=== PATIENT | female | born 1980 | race Caucasian/White ===

== ENCOUNTER 2017-01-12 13:06 | Observation (INO) ==
[2017-01-12] MEDS ORDERED: Ringers Solution, Lactated 1,000 ML IVC SCH (13:15)
[2017-01-12] MEDS ORDERED: Acetaminophen 325 MG TABLET PO ONE (13:30)
--- NOTE | 2017-01-12 13:30 | OB/GYN History & Physical ---
Date of Encounter: 01/12/17 Time of Encounter: 13:28 Assessment and Plan (1) Fever Current visit: Yes Status: Acute CBC CMP Urinarlyis and reflex culture IV LR bolus of 1 liter followed by 125ml/hr 1 gram tylenol PO Discussed POC with Dr Baumann. Qualifiers: Fever type: unspecified Qualified Code(s): R50.9 - Fever, unspecified (2) tachycardia Current visit: Yes Status: Acute History of Present Illness Chief complaint: Fever and tachycardia HPI: Ms. Olivas is a 36 year old at 29 weeks 6 days that arrives from the office with c/o fever since Monday evening with tachycardia. Patient states she has had a headache for several days that she cannot get rid of (although it is better today), myalgia, chills, night sweats, and feeling feverish. She thought she may have a UTI several weeks ago, but her urinalysis was negative and she was not treated for one. She denies abdominal pain, suprapubic pain, back/flank pain. She has no new rashes. Her son had a fever for 12 hours last week after camping that was reduced with tylenol and he did not have a rash after his fever broke. She states positive movement. She denies vision changes, epigastric pain, vaginal bleeding, vaginal discharge, and cramping. Obstetrical History - Pregnancies : 3 Para: 2 Term: 2 : 0 Ab's: 0 Livin Medications and Allergies Vit Calc,Iron,Folic [ Vitamins] 1 tab PO DAILY 01/12/17 [ History] 3 Allergy/AdvReac Type Severity Reaction Status Date / Time No Known Allergies Allergy Verified 01/12/17 13:22 Review of System OB All systems PM: reviewed and no additional remarkable complaints except as stated - Constitutional Constitutional ROS IM: chills, fatigue, fever(s), headache(s), lethargy, malaise , night sweats Exam - Constitutional Constitutional: well developed, well nourished, no acute distress, average body habitus - HEENT HEENT: Normocephaly, Mucus Membranes Moist - Neck Neck exam: full ROM - Lungs Respiratory exam: CTAB - Cardiovascular Cardiovascular exam: RRR, +S1, +S2 (apical pulse 100) - Abdomen Abdomen: Present: bowel sounds normal, gravid, non tender (FHTs 210 with moderate varability) - Extremities Extremities exam: normal capillary refill, normal inspection, radial pulses palpable and symmetrical Deep Tendon Reflex Grade: 1+ Diminished - Uterus Uterus exam: Present: normal size, normal contour. Absent: tender Results All other labs normal. - VTE Reasons for not Prescribing Prophylaxis: Treatment not Indicated - Low risk for VTE
[2017-01-12 13:44] LABS: Basophils % 0.2 %; Eosinophils % 0.1 %; Hematocrit 31.4 % (35.3-44.9); Hemoglobin 10.3 g/dL (11.5-15.4); Immature Granulocytes % 0.8 % (0-4); Lymphocytes # 2.1 K/mcL (0.6-4.6); Lymphocytes % 20.9 %; Mean Corpuscular HGB Conc 32.8 g/dL (31.6-35.5); Mean Corpuscular Hemoglobin 31.3 pg (28.0-33.3); Mean Corpuscular Volume 95.4 fL (83.0-100.0); Mean Platelet Volume 10.3 fL (9.4-12.4); Monocytes # 0.4 K/mcL (0.0-1.3); Neutrophils # 7.5 K/mcL (1.6-8.9); Platelet Count 204 K/mcL (140-400); Red Blood Count 3.29 M/mcL (3.82-4.97); Red Cell Distribution Width 12.7 % (11.5-14.5)
[2017-01-12 13:45] LABS: Bilirubin,Urine Negative (Negative); Blood,Urine Negative (Negative); Clarity,Urine Cloudy (Clear); Color,Urine Yellow (Yellow); Glucose,Urine (UA) Normal (Normal); Ketones,Urine Negative (Negative); Leukocyte Esterase,Urine Negative (Negative); Nitrite,Urine Negative (Negative); PH,Urine 6.5 pH Units (5.0-8.0); Protein,Urine Trace mg/dL (Neg-Trace); Specific Gravity,Urine 1.025 (1.010-1.025); Urobilinogen,Urine Normal (Normal)
[2017-01-12 13:47] LABS: Bacteria,Urine None Seen per hpf (None-Few); Hyaline Casts,Urine None Seen per lpf (None-Few); Squamous Epithelial Cell,Urine Many per lpf (None-Few)
[2017-01-12 13:57] LABS: Alanine Aminotransferase 12 Units/L (0-55); Albumin 2.8 g/dL (3.5-5.0); Albumin/Globulin Ratio 0.7 (1.1-2.2); Alkaline Phosphatase 75 Units/L (38-126); Aspartate Amino Transferase 17 Units/L (5-34); BUN/Creatinine Ratio 9 (6-26); Bilirubin,Total 0.3 mg/dL (0.2-1.2); Blood Urea Nitrogen 7 mg/dL (7-20); Calcium 8.9 mg/dL (8.6-10.8); Carbon Dioxide 21 mEq/L (19-29); Chloride 105 mEq/L (98-109); Globulin 3.8 g/dL (2.4-3.5); Glucose 99 mg/dL (70-99); Osmolality,Calculated 278 (280-300); Potassium 3.7 mEq/L (3.5-4.5); Sodium 135 mEq/L (136-145); Total Protein 6.6 g/dL (6.0-8.3); eGFR For African Americans > 60 (> 60); eGFR For Non-African Americans > 60 (> 60)
[2017-01-12 13:58] LABS: RBC,Urine 0-3 per hpf (0-3)
[2017-01-12] MEDS ORDERED: Vancomycin 1,500 MG in D5% in Water 250 ML IVPB ONE (15:59)
[2017-01-12] MEDS ORDERED: Vancomycin 2,000 MG in D5% in Water 500 ML IVPB ONE (16:21)
[2017-01-12] MEDS ORDERED: Aminoglycoside Consult 1 EACH MC ONE (16:44)
[2017-01-13] MEDS ORDERED: Vancomycin 1,500 MG in D5% in Water 250 ML IVPB SCH (05:00)
== END 2017-01-12 16:45 | disposition short-term general hospital (02) ==
LOC: 1NENULAB
PROVIDERS: ADMIT Obstetrics & Gynecology; ATTEND Obstetrics & Gynecology

== ENCOUNTER 2017-01-12 16:59 | Inpatient (IN) ==
--- NOTE | 2017-01-12 17:33 | Emergency Department Note ---
Disposition Clinical Impression: Meningitis Headache Qualifiers: Headache type: unspecified Headache chronicity pattern: acute headache Intractability: not intractable Qualified Code(s): R51 - Headache Fever Qualifiers: Fever type: unspecified Qualified Code(s): R50.9 - Fever, unspecified Disposition: Admitted As Inpatient Condition: Fair Time of Disposition: 22:01 Headache HPI - General Chief Complaint: ED Headache Stated Complaint: headache Time Seen by Provider: 01/12/17 17:04 Source: patient Mode of arrival: ambulatory Limitations: no limitations Nursing Notes Reviewed: Yes Vital Signs Reviewed: Yes - History of Present Illness HPI Narrative: Patient is a 36-year-old female who presents to [facility] ED with a chief complaint of headache. States her symptoms started 5 days ago. She has also had a fever intermittently throughout the days. States the highest it has been is 101.5. Denies any nausea, vomiting. Patient is currently 30 weeks . She was sent over by the [facility] [employer] office to be evaluated and get a lumbar puncture to rule out meningitis. They have spoken with infectious disease specialist Dr. Baker who had recommended prophylactic antibiotics including Rocephin and vancomycin. Patient denies any recent bites or scratches from animals or bugs. Pt Subjective Complaint: headache Onset (ago): day(s) Onset description: gradual Location: frontal Pain Severity: moderate Pain Scale: 4 Quality: aching Improves with: nothing Worsens with: none Associated symptoms: Reports: fever. Denies: chest pain, nausea, vomiting, neck stiffness, vision changes, SOB, weakness Treatments prior to arrival: none - Related Data Home Medications Medication Instructions Recorded Confirmed Vit Calc,Iron,Folic 1 tab PO DAILY 01/12/17 01/12/17 [ Vitamins] Allergies Allergy/AdvReac Type Severity Reaction Status Date / Time No Known Allergies Allergy Verified 01/12/17 13:22 All systems ED: reviewed and negative except as stated. Headache PMH - Past Medical History Medical history: Reports: no medical history Female Surgical History: Reports: other Psychiatric history: Reports: no psych history - Social History Smoking Status: Never smoker Alcohol use: Reports: none Drug use: Reports: none Physical Exam - General Limitations: no limitations General appearance: alert, in no apparent distress - Head Head exam: atraumatic, normocephalic, normal inspection - Eye Eye exam: Present: normal appearance, PERRL, EOMI - ENT ENT exam: normal exam, normal oropharynx, mucous membranes moist, TM's normal bilaterally, normal external ear exam - Neck Neck exam: Present: normal inspection, full ROM, trachea midline. Absent: meningismus, lymphadenopathy - Chest Chest inspection: Present: normal inspection, symmetric chest wall rise - Respiratory Respiratory exam: Present: normal lung sounds bilaterally - Cardiovascular Cardiovascular exam: Present: regular rate, normal rhythm, normal heart sounds - Abdominal Exam Abdominal exam: Present: soft, Non-Tender. Absent: tenderness, distention, guarding, rebound, rigidity - Extremities Exam Extremities exam: Present: normal inspection, full ROM. Absent: tenderness, pedal edema - Back Exam Back exam: Present: normal inspection, full ROM. Absent: tenderness - Neurological Exam Neurological exam: Present: alert, oriented X3, CN II-XII intact - Psychiatric Psychiatric exam: Present: normal affect, normal mood - Skin Skin exam: Present: warm, dry, intact, normal color Course Course Narrative: Patient seen and examined. Headache with fever. Temperature here is 100.2. Sent by [facility] in conjunction with infectious disease for lumbar puncture. We will get a CT scan and then perform lumbar puncture. Patient counseled about the risks of radiation and benefits of doing a CT scan of her head. We will shield belly. She agreed to getting the CT scan. Patient also counseled about the risks and benefits of getting a lumbar puncture. She has agreed to this as well. Consent obtained. We will also get blood cultures. - Reevaluation(s) Reevaluation #1: CT of the head unremarkable. Lumbar puncture was successfully performed without any immediate complications. Awaiting results. Time: 19:59 Reevaluation #2: Spoke with hospitalist Dr. Andrew who accepted patient for admission. Time: 22:59 Vital Signs Temperature 100.2 F H 01/12/17 17:14 Pulse Rate 84 01/12/17 17:14 Respiratory Rate 18 01/12/17 17:14 Blood Pressure 105/63 01/12/17 17:14 O2 Sat by Pulse Oximetry 97 01/12/17 17:14 Temperature 100.2 F H 01/12/17 17:14 Pulse Rate 82 01/12/17 19:59 Respiratory Rate 18 01/12/17 19:59 Blood Pressure 110/56 01/12/17 19:59 O2 Sat by Pulse Oximetry 96 01/12/17 19:59 Oxygen Delivery Oxygen Delivery Room Air Headache - Medical Records Medical records reviewed: Yes I reviewed the patient's medical records. - Lab Data Lab results reviewed: Yes I reviewed the patient's lab results. - Radiology Data Radiology results reviewed: Yes I reviewed the patient's radiology results. Head CT 01/12/17 17:30 IMPRESSION: No acute intracranial abnormality. D/ / Brad Matta MD / Brad Matta MD Interpreting Provider: Brad Matta MD
[2017-01-12] MEDS ORDERED: Lidocaine 1% 20 ML MDV ID ONE (17:54)
--- NOTE | 2017-01-12 18:03 | Emergency Department Note ---
Disposition Clinical Impression: Meningitis, Headache, Fever Disposition: Admitted As Inpatient Condition: Fair General Adult HPI - General Chief complaint: ED Headache Stated complaint: headache Time Seen by Provider: 01/12/17 17:04 - History of Present Illness Pain Scale: 4 - Related Data Home Medications Medication Instructions Recorded Confirmed Vit Calc,Iron,Folic 1 tab PO DAILY 01/12/17 01/12/17 [ Vitamins] Allergies Allergy/AdvReac Type Severity Reaction Status Date / Time No Known Allergies Allergy Verified 01/12/17 13:22 Past Medical History - Past Medical History Medical history: Reports: no medical history Surgical history: Reports: other Psychiatric history: Reports: no psych history - Social History Smoking Status: Never smoker Smokeless Tobacco Status: No Alcohol use: Reports: none Drug use: Reports: none Physical Exam - General General appearance: alert, in no apparent distress Course - Reevaluation(s) Reevaluation #1: I saw the patient with the resident, Dr. billy. Patient was sent down from L&D where she was being evaluated. During that valuation she had reported headaches and fevers over the past couple of days. They did an evaluation on her and were concerned about the possibility of meningitis. They tried numerous ways to get an LP done by somebody in the hospital but no one was able to do it for them so they ended of discharge the patient Manisha and sending her down here to be evaluated and to get an LP done. Patient describes fevers over the past 4-5 days. As high as 102 degrees. She claims of headache that is frontal only. She describes it as pressure feeling. It is not associated with any upper respiratory congestion symptoms. She denies any actual neck pain or stiffness to me. On my physical examination I see no meningismus. She puts her chin down to her chest without any pain in her neck although it aggravates her frontal headache. Rest of the examination is unremarkable. She does have the fever and the only other associated symptom is headache yet my physical exam does not reveal an etiology for these symptoms. Thus I cannot rule out meningitis although I doubt its presence based on the fact that she has been having it for 4 or 5 days and yet looks fine and has no neck stiffness and has a normal white count. She is also 30 weeks and this adds the importance of making sure she does not have an intracranial infection or hemorrhagic issue. Thus after a shared decision-making discussion with the patient and family, it was decided that we would proceed with CT scan of the head and then LP if that CT was unremarkable. Patient had already been given antibiotics upstairs. Disposition will be based on diagnostic results and reevaluation. Time: 18:03 Vital Signs Temperature 100.2 F H 01/12/17 17:14 Pulse Rate 84 01/12/17 17:14 Respiratory Rate 18 01/12/17 17:14 Blood Pressure 105/63 01/12/17 17:14 O2 Sat by Pulse Oximetry 97 01/12/17 17:14 Temperature 101.9 F H 01/12/17 23:35 Pulse Rate 82 01/12/17 19:59 Respiratory Rate 16 01/12/17 23:35 Blood Pressure 94/53 01/12/17 23:35 O2 Sat by Pulse Oximetry 96 01/12/17 19:59 Oxygen Delivery Oxygen Delivery Room Air Attestation Statement - Attestation Attestation: I, Dr. Beltran, examined this patient [id number] and my medical decision- making was reviewed with the Resident Physician, Dr. billy. I agree with the documented findings, disposition and treatment plan as described except to the extent set forth below. Please see my progress notes for details. I was physically present during the lumbar puncture procedure.
[2017-01-12 20:00] LABS: Red Blood Cell,CSF < 0.002 M/mcL
[2017-01-12 20:05] LABS: Appearance,CSF Clear (Clear)
[2017-01-12 20:16] LABS: Glucose,CSF 52 mg/dL (40-70); Total Protein,CSF 32 mg/dL (15-45)
[2017-01-12] MEDS ORDERED: Acetaminophen 325 MG TABLET PO ONE (22:57)
[2017-01-12] MEDS ORDERED: 0.9 % Sodium Chloride 1,000 ML IVC ONE (23:10)
[2017-01-13] MEDS ORDERED: 0.9 % Sodium Chloride 1,000 ML IVC SCH (01:15)
[2017-01-13] MEDS ORDERED: Vancomycin 1,500 MG in D5% in Water 250 ML IVPB ONE (01:15)
--- NOTE | 2017-01-13 01:23 | Internal Med History&Physical ---
<Elias Melendrez - Last Filed: 01/13/17 01:30> Date of Encounter: 01/13/17 Time of Encounter: 01:17 Assessment and Plan (1) Meningitis Current visit: Yes Status: Suspected 36 y/o femlae 29 weeks 6 days presents with headache of 5 days Frontal headache constant nonradiating 7 out of 10 pain dull/throbbing, worsens with movement, flexing neck, light Denies nausea vomiting Reports stiff neck Associated with fever starting last Monday after returning from camping from [place] Healthy shows elevated white blood cell count with predominant leukocytosis CT head negative Patient febrile with temperature 101-102 Plan: Vancomycin (class C), ceftriaxone (B) , acyclovir (class B) [place] has known cases of Lyme disease ID on board Every 4 neuro checks Lyme disease serology [employer] onboard (2) DVT prophylaxis Current visit: Yes Status: Acute EPCD Internal Medicine - H&P: HPI Chief complaint: Headache Admitted From: Home Plans for Post Hospital Care: Home History of present illness: Ms. Olivas is a 36 year old female at 29 weeks 6 days presents with chief complaint of headache. Patient states that it started Monday after coming back from a camping trip from [place]. Headache is constant 7 out of 10 dull pain that worsens with flexing her neck, movement, light. Reports neck stiffness. The headache becomes a throbbing pain with movement. States since Monday she has had subjective fevers however this morning she was noted to have a fever of 101. Denies passing out, confusion, seizures, tick bite, rash, runny nose, sore throat, dry mouth, chest pain, palpitations, shortness of breath, cough, nausea, vomiting, diarrhea, dysuria, hematuria, vaginal discharge, vaginal bleeding. Patient's fever is controlled by Tylenol. heart rate has been elevated in the 180s to 200s. Dr. Call was consulted by Dr. Baumann who ordered a lumbar unsure, vancomycin, ceftriaxone. Lumbar puncture showed elevated white blood cell count predominantly leukocytosis. States previous pregnancies were spontaneous deliveries without any complications. No contributing past medical history. CT scan of the head unremarkable. Past Med Surg Social Fam HX - Past Medical History Medical history: no medical history Psychiatric history: no psych history - Past Surgical History Surgical History: other (left knee surgery) - Social History Smoking Status: Never smoker Smokeless Tobacco Status: No Alcohol use: none Drug use: none - Family History Mother Living Status: Still Living Hx Family Cardiac Disorders: No Hx Family Respiratory Disorders: No Hx Family Cancer: No Hx Family GI Disorders: No Hx Family Endocrine Disorder: Yes (Hypothyroidism) Hx Family Neuromuscular Disorders: No Hx Family Neurologic Disorders: No Hx Family HEENT Disorders: No Hx Family Autoimmune Disorders: No Internal Medicine - H&P: Meds Vit Calc,Iron,Folic [ Vitamins] 1 tab PO DAILY 01/12/17 [ History] 3 Allergy/AdvReac Type Severity Reaction Status Date / Time No Known Allergies Allergy Verified 01/12/17 13:22 All Systems PM: A 10-system review of systems was performed and is negative for pertinent findings except as documented above in the HPI. - Constitutional Vitals: Temp Pulse Resp BP Pulse Ox 98.6 F 90 16 88/52 96 01/13/17 00:35 01/13/17 00:35 01/13/17 00:35 01/13/17 00:35 01/13/17 00:35 - Other Additional findings: General: Alert and oriented to place time and situation. Mild distress HEENT: Head atraumatic, normocephalic, EOMI, PERRLA, neck nontender to palpation , absent Lymphadenopathy, Moist Mucous Membranes, Heart: Regular rate and rhythm with no murmur Lungs: Clear to auscultation bilaterally Abdomen: Soft nontender, nondistended positive bowel sounds Extremities: Absent pedal edema, Skin: Without rash, erythema, open wounds, no evidence of tick bite Neuro: Cranial nerves II through XII intact, sensation equal bilaterally, strength upper and lower extremity 5/5, alert oriented 3. Positive Brudzinski' s and Kernig's sign. Vascular: Pedal and radial pulses 2 out of 4 <Eugene Andrew - Last Filed: 01/13/17 04:53> Date of Encounter: 01/13/17 Assessment and Plan (1) Current visit: Yes Status: Chronic will need OBGYN to weigh in Qualifiers: Weeks of gestation: 29 weeks Qualified Code(s): Z3A.29 - 29 weeks gestation of Internal Medicine - H&P: HPI History of present illness: Ms. Olivas is a 36 year old female All Systems PM: A 10-system review of systems was performed and is negative for pertinent findings except as documented above in the HPI. - Constitutional Vitals: Temp Pulse Resp BP Pulse Ox 98.8 F 88 16 88/52 100 01/13/17 03:14 01/13/17 03:14 01/13/17 03:14 01/13/17 03:14 01/13/17 03:14 febrile to touch but non toxic looking, neck is stiff, Kernig's inconclusive Internal Med - H&P Results - Labs CBC & Chem 7: 01/13/17 04:01 01/13/17 04:01 Labs: Short CBC 01/13/17 Range/Units 04:01 WBC 8.6 (4.3-11.1) K/mcL Hgb 8.3 L D (11.5-15.4) g/dL Hct 24.7 L (35.3-44.9) % Plt Count 175 (140-400) K/mcL Neutrophils # 5.3 (1.6-8.9) K/mcL BMP 01/13/17 04:01 Sodium 136 Potassium 3.6 Chloride 110 H Carbon Dioxide 20 BUN 6 L Creatinine 0.64 Glucose 102 H Calcium 7.5 L D - Diagnostic Studies CT scan - head Status: image reviewed by me - Attending Attestation I personally interviewed and examined this patient and my medical decision- making was reviewed with the Resident Physician. I agree with the documented findings, disposition and treatment plan as described. Could be viral meningitis vs viral encephalitis. Will need to hydrate adequately to prevent Crystal-induced acute kidney injury. Eugene Andrew MD, MPH Hospitalist
[2017-01-13] MEDS ORDERED: 0.9 % Sodium Chloride 1,000 ML IVC ONE ×3 (03:09→14:59)
[2017-01-13 04:08] LABS: Basophils % 0.1 %; Eosinophils % 0.2 %; Hematocrit 24.7 % (35.3-44.9); Immature Granulocytes % 1.3 % (0-4); Immature Platelets 3.2 % (1.1-6.1); Lymphocytes # 2.7 K/mcL (0.6-4.6); Lymphocytes % 31.7 %; Mean Corpuscular HGB Conc 33.6 g/dL (31.6-35.5); Mean Corpuscular Hemoglobin 31.9 pg (28.0-33.3); Monocytes # 0.5 K/mcL (0.0-1.3); Monocytes % 5.3 %; Neutrophils # 5.3 K/mcL (1.6-8.9); Platelet Count 175 K/mcL (140-400); Red Cell Distribution Width 12.8 % (11.5-14.5); Segmented Neutrophils % 61.4 %
[2017-01-13 04:09] LABS: Hemoglobin 8.3 g/dL (11.5-15.4)
[2017-01-13 04:19] LABS: BUN/Creatinine Ratio 9 (6-26); Blood Urea Nitrogen 6 mg/dL (7-20); Carbon Dioxide 20 mEq/L (19-29); Chloride 110 mEq/L (98-109); Glucose 102 mg/dL (70-99); Osmolality,Calculated 280 (280-300); Potassium 3.6 mEq/L (3.5-4.5); Sodium 136 mEq/L (136-145); eGFR For African Americans > 60 (> 60); eGFR For Non-African Americans > 60 (> 60)
[2017-01-13 04:21] LABS: Calcium 7.5 mg/dL (8.6-10.8)
[2017-01-13] MEDS ORDERED: 0.9 % Sodium Chloride 250 ML IVC PRN (08:22)
[2017-01-13] MEDS: Acyclovir 700 MG in D5% in Water 250 ML IVPB SCH ×3 (08:50→22:58)
[2017-01-13] MEDS: Acetaminophen 325 MG TABLET PO PRN ×2 (09:04→17:21)
--- NOTE | 2017-01-13 09:16 | Infectious Disease Consult ---
Date of Encounter: 01/13/17 Time of Encounter: 09:15 Assessment and Plan (1) Meningitis Status: Resolved Assessment and plan: Since admission she has met two SIRS criteria of fever with temperature max 101.9 F, tachycardia heart rate 95 Labs on admission revealed no leukocytosis, 61% neutrophils, hemoglobin 8.3, and glucose of 102. Patient had lumbar puncture performed in the emergency department on 01/12/17 which revealed 71 total nucleated cells with 85% lymphocytes, 52 glucose, and < 0.[address] brain without contrast revealed no acute intracranial abnormality. Blood cultures collected 01/12/17 reveal no growth to date. CSF cultures show no growth to date. CSF Gram stain shows <10 WBCs per high per Field, no bacteria Patient was started on empiric Vancomycin and Rocephin on 01/13/17. negative lyme, HIV, crypto, syhphilis Recommendations: Likely viral meningitis given related total nucleated cells and 85% lymphocytes on CSF analysis. await HSV and VZV PCR d/c droplet precautions d/c vanc and rocephin will d/c acyclovir once HSV/VZV pcr is back likely aseptic meningitis, require symptomatic care, (bed rest, hydration and tylenol) index of suspicion for tick borne illness is low (2) Headache Status: Chronic Assessment and plan: Recent lumbar puncture. Continue symptomatic management. Qualifiers: Headache type: unspecified Headache chronicity pattern: acute headache Intractability: not intractable Qualified Code(s): R51 - Headache (3) Fever Status: Acute Assessment and plan: Continue current management. Qualifiers: Fever type: unspecified Qualified Code(s): R50.9 - Fever, unspecified (4) Status: Chronic Assessment and plan: QA AUTOMATION ENGINEER following. Qualifiers: Weeks of gestation: 29 weeks Qualified Code(s): Z3A.29 - 29 weeks gestation of Infectious Disease HPI - Data of Consult Consult date: 01/13/17 Requesting Physician: Linda Rose MD Primary Care Provider: Jeanne Schneider CNP - Consult Narrative Reason for consult: possible meningitits in female, 30 weeks History of present illness: Ms. Olivas is a 36 year old female at 30 weeks that was admitted on for headache and intermittent fever. Infectious disease is consulted on 01/13/17 and for possible meningitis Ms. Olivas is a 36 year old female with a PMH significant for uncomplicated at 30 weeks gestation and two prior uncomplicated pregnancies that presented to the hospital complaining of headache for the past 5 days. She reports the headache started gradually and is localized to the frontal region. She denies nausea, vomiting, diarrhea, neck stiffness, or confusion. She reports tick bite 3 months ago. Also, reports they took in a stray dog 3 weeks ago who was covered in ticks and fleas. She reports her son was sick with URI ofor 24hrs 1 week ago while they were traveling to [place] on a camping trip. Since admission she has met default value SIRS criteria of fever with temperature max 101.9 F, tachycardia heart rate 95 Labs on admission revealed no leukocytosis, 61% neutrophils, hemoglobin 8.3, and glucose of 102. Patient had lumbar puncture performed in the emergency department on 01/12/17 which revealed 71 total nucleated cells with 85% lymphocytes, 52 glucose, and < 0.[address] brain without contrast revealed no acute intracranial abnormality. Blood cultures collected 01/12/17 reveal no growth to date. CSF cultures show no growth to date. Patient was started on empiric Vancomycin and Rocephin on 01/13/17. Other consultants include QA AUTOMATION ENGINEER. CC: Linda Rose MD Past Med Surg Social Fam HX - Past Medical History Medical history: no medical history Psychiatric history: no psych history - Past Surgical History Surgical History: other (left knee surgery) - Social History Smoking Status: Never smoker Smokeless Tobacco Status: No Alcohol use: none Drug use: none Occupational status: employed (teacher) - Family History Mother Living Status: Still Living Hx Family Cardiac Disorders: No Hx Family Respiratory Disorders: No Hx Family Cancer: No Hx Family GI Disorders: No Hx Family Endocrine Disorder: Yes (Hypothyroidism) Hx Family Neuromuscular Disorders: No Hx Family Neurologic Disorders: No Hx Family HEENT Disorders: No Hx Family Autoimmune Disorders: No Infectious Disease-CN:Meds Vit Calc,Iron,Folic [ Vitamins] 1 tab PO DAILY 01/12/17 [ History] Acetaminophen/Butalbital/Caffe [Fioricet] 1 each PO Q6HR PRN #40 tablet [Rx] Metoclopramide [Reglan] 10 mg PO TID #30 tablet 01/16/17 [Rx] 3 Allergy/AdvReac Type Severity Reaction Status Date / Time No Known Allergies Allergy Verified 01/12/17 13:22 Review of systems: Travel: Reports recent travel to [place] 1 week ago for camping trip and trip to [place] November 29 Animal exposure: reports stray dog exposure 3 weeks ago Sick contacts: Patient has 2 small children at home and son had URI 1 week ago. Diet: denies ingestion of undercooked or raw meats. Dental: denies recent dental procedures - Constitutional Constitutional: Present: chills, fatigue, fever(s), lethargy, malaise. Absent: night sweats, weight gain, weight loss - EENT Eyes: Absent: change in vision Nose, mouth and throat: Absent: change in voice, mouth pain, nasal congestion, nasal obstruction - Cardiovascular Cardiovascular: Absent: chest pain, dyspnea, palpitations, radiating pain - Respiratory Respiratory: Absent: cough, chest congestion - Gastrointestinal Gastrointestinal: Absent: abdominal pain, diarrhea, nausea, vomiting - Genitourinary Additional comments: 30 weeks - Musculoskeletal Musculoskeletal: Absent: myalgias, numbness, stiffness - Integumentary Integumentary: Absent: change in hair, change in nails, change in pigmentation, erythema, lesions, rash - Neurological Neurological: Present: headache(s). Absent: confusion, numbness, paresthesias, tingling, weakness - Psychiatric Psychiatric: Absent: anxiety, memory loss - Endocrine Endocrine: Present: fatigue. Absent: cold intolerance, heat intolerance, polydipsia, polyphagia, polyuria - Hematologic/Lymphatic Hematologic/Lymphatic: Absent: lymphadenopathy - Allergic/Immunologic Allergic/Immunologic: Absent: seasonal rhinorrhea Exam - Constitutional Vitals: Temp Pulse Resp BP Pulse Ox 101.2 F H 95 16 105/64 96 01/13/17 09:06 01/13/17 09:06 01/13/17 09:06 01/13/17 09:06 01/13/17 09:06 General appearance: average body habitus (gravid), febrile, cooperative, no acute distress - Head Head exam: Present: atraumatic, normal inspection, normocephalic - Eye Eye exam: Present: PERRL, conjuntiva pink - ENT ENT exam: Present: mucous membranes moist, normal oropharynx - Neck Neck exam: Present: meningismus (decreased neck ROM secondary to headache), normal inspection. Absent: full ROM, tenderness, thyromegaly - Respiratory Respiratory exam: Present: CTAB. Absent: rales, rhonchi - Cardiovascular Cardiovascular exam: Present: diastolic murmur, RRR, +S1, +S2, systolic murmur - GI/Abdominal GI/Abdominal exam: Present: distended (gravid consisitent with 30 weeks gestation), normal bowel sounds, soft. Absent: guarding, rebound - Extremities Exam Extremities exam: Present: full ROM, normal inspection. Absent: pedal edema, tenderness - Neurological Exam Neurological exam: Present: alert, CN II-XII intact, oriented X3, strengths equal and symetr throughout. Absent: altered, motor sensory deficit, facial droop, speech deficit - Psychiatric Psychiatric exam: Present: normal affect, normal mood - Skin Skin exam: Present: dry, warm. Absent: erythema, rash Infectious Disease CN: Results - Labs CBC & Chem 7: 01/16/17 04:16 01/16/17 04:16 Cultures: Cultures 01/12/17 Unknown CSF Culture - Preliminary Cerebral Spinal Fluid 01/12/17 Unknown Gram Stain - Final Cerebral Spinal Fluid Serology: Serology 01/12/17 Range/Units Unknown CSF Volume 7.0 mL CSF Appearance Clear (Clear) CSF Color Colorless (Colorless) CSF RBC < 0.002 (0.000 - 0.002) M/mcL CSF Tot Nucleated Cells 71 H* (0-5) TNC/mcL CSF Seg Neutrophils 5.0 % CSF Band Neutrophils % Test Not Performed CSF Lymphocytes % 85.0 % CSF Monocytes % 5.0 % CSF Eosinophils % Test Not Performed CSF Basophils % Test Not Performed CSF Other Cells % 5.0 % CSF Glucose 52 (40-70) mg/dL CSF Xanth Comm Not Observed (Not Observe) CSF Total Protein 32 (15-45) mg/dL Consult Discharge Plan - Plan Instructions: Viral Meningitis (DC) Additional Instructions: Please follow up with your primary care physician and demolition worker within five days after your discharge from the hospital. Please resume all your home medications after your discharge from the hospital. Please seek medical help if fever reoccurs. Referrals: Jeanne Schneider CNP [Primary Care Provider] - Prescriptions: Acetaminophen/Butalbital/Caffe [Fioricet] 1 each PO Q6HR PRN #40 tablet PRN Reason: Headache Metoclopramide [Reglan] 10 mg PO TID #30 tablet - Attending Attestation I examined this patient and my medical decision-making was reviewed with the Resident Physician. I agree with the documented findings, disposition and treatment plan as described except to the extent set forth below. Patient is a 36 year old woman who is 30 week was admitted on 01/12 for fevers, headaches and concern for meningitis. I received a phone call from the demolition worker service about this patient, I recommended LP, cell count, gram stain, cultures, protein, glucose, hsv pcr. I also recommended the patient starts on vanc/rocephin. Patient states that 7 days prior to admission her son had a low grade fever and URI symptoms that lasted for 24 hours Patient states she had headache in the frontal area that started 5 days prior to admission associated with fevers (102F), neck stiffness. Patient denies any rhinorrhea, sore throat, ear ache, cough, chest pain or shortness of breath. No abdominal pain or diarrhea. No rash. No joint pain. Patient did state that she went camping in [place] a week prior to admission and in November they had a trip to [place]. Patient denies any tick bites. Denies any mosquito bites. Since admission, shes been febrile 101.9F, tachycardic no leukocytosis. LP revealed pleocytosis at 71 with lymphocytic 85%. Glucose 52 and protein 32. Gram stain no organism, cultures no growth todate and negative syphilis, lyme and hiv .Cryptoccocal antigen negative and HSV pcr not back yet Patient was also started on acyclovir. We are consulted to make further recommendations. Likely viral meningitis given related total nucleated cells and 85% lymphocytes on CSF analysis. await HSV and VZV PCR d/c droplet precautions d/c vanc and rocephin will d/c acyclovir once HSV/VZV pcr is back likely aseptic meningitis, require symptomatic care, (bed rest, hydration and tylenol) index of suspicion for tick borne illness is low
--- NOTE | 2017-01-13 11:21 | Event Note ---
Date of Encounter: 01/13/17 Time of Encounter: 08:15 Pt is a 36y/o female admitted for meningitis. Seen and examined at bedside. Awaiting ID and turn down worker follow up will continue empiric abx, IV fluids, and tylenol as needed. Closely monitor BP
--- NOTE | 2017-01-13 12:09 | OB/GYN Progress Note ---
Date of Encounter: 01/13/17 Time of Encounter: 12:07 - Assessment and Plan (1) 30 weeks gestation of Current Visit: Yes Status: Acute FHT rate is lower today, will change to twice daily NSTs. Pt educated to alert staff to any labor signs and symptoms. Pt verbalizes understanding. Subjective - Subjective Interval history: Pt states continues to have headache, reports good movement, denies vaginal bleeding, contractions or leaking of fluid. Antepartum ROS: movement normal, other (Headache, fever, ), no loss of fluid, no vaginal bleeding, no contractions Objective - Vital Signs Vital Signs: Vital Signs Temp Pulse Resp BP Pulse Ox 01/13/17 11:05 98.8 F 92 16 99/59 96 01/13/17 09:06 101.2 F H 95 16 105/64 96 01/13/17 03:14 98.8 F 88 16 88/52 100 01/13/17 00:35 98.6 F 90 16 88/52 96 01/12/17 23:35 101.9 F H 16 94/53 Intake and Output 01/12/17 01/13/17 01/13/17 23:59 07:59 15:59 Intake Total 2250 / 2250 624 / 624 Balance 2250 / 2250 624 / 624 Intake: IV Fluids 2250 / 2250 264 / 264 0.9 % Sodium Chloride 1, 2000 / 2000 000 ML @ 3750 mls/hr IVC .Q16M ONE Rx#:[id number] Zovirax 700 MG In 264 / 264 Dextrose 5% 250 ML @ 250 mls/hr IVPB Q8HR EMILY Rx#: [id number] Vancocin 1,500 MG In 250 / 250 Dextrose 5% 250 ML @ 167 mls/hr IVPB ONCE ONE Rx#: [id number] Oral 0 / 0 360 / 360 Other: Meal Breakfast Percent of Meal Consumed 60% # Voids 1 Weight 93.88 kg Patient Weight 01/13/17 23:59 Weight 93.88 kg - Exam FHR: auscultation normal FHR comments: FHT via doppler 150-160 listened for 3 minutes. Abdomen: Present: normal appearance, soft, gravid (non tender ). Absent: tenderness Uterus: Present: normal. Absent: tenderness - Labs Labs: Abnormal lab results RBC 2.60 M/mcL (3.82-4.97) L 01/13/17 04:01 Hgb 8.3 g/dL (11.5-15.4) L D 01/13/17 04:01 Hct 24.7 % (35.3-44.9) L 01/13/17 04:01 Chloride 110 mEq/L (98-109) H 01/13/17 04:01 BUN 6 mg/dL (7-20) L 01/13/17 04:01 Glucose 102 mg/dL (70-99) H 01/13/17 04:01 Calcium 7.5 mg/dL (8.6-10.8) L D 01/13/17 04:01 CSF Tot Nucleated Cells 71 TNC/mcL (0-5) H* 01/12/17 Unknown
[2017-01-13] MEDS ORDERED: Vancomycin 1,500 MG in D5% in Water 250 ML IVPB SCH (13:00)
[2017-01-13] MEDS: Acetaminophen/Butalbital/CaffeineTABLET PO PRN (15:39)
[2017-01-13] MEDS: 0.9 % Sodium Chloride 1,000 ML IVC SCH ×2 (15:40→22:48)
[2017-01-13] MEDS ORDERED: Metoclopramide 10 MG/2 ML VIAL IVP ONE (16:46)
--- NOTE | 2017-01-13 17:12 | Event Note ---
Date of Encounter: 01/13/17 Time of Encounter: 17:10 [facility] alert seen for testing all patients with potential viral menegitis or otherwise unknown febrile illness for arboviral infections. Discussed with Milton Joiner and Samuel. Arboviral panel and Parvo IgM and IgG ordered.
[2017-01-13] MEDS: *HR* Heparin 5,000 UNIT/ML VIAL SQ SCH ×2 (22:25→22:47)
[2017-01-14] MEDS: Acetaminophen 325 MG TABLET PO PRN (01:57)
[2017-01-14] MEDS: *HR* Heparin 5,000 UNIT/ML VIAL SQ SCH (05:56)
[2017-01-14] MEDS ORDERED: Ringers Solution, Lactated 1,000 ML ONE (06:21)
[2017-01-14] MEDS ORDERED: Ringers Solution, Lactated 500 ML IVC ONE (06:21)
[2017-01-14] MEDS: Acetaminophen/Butalbital/CaffeineTABLET PO PRN ×3 (06:22→22:28)
--- NOTE | 2017-01-14 07:19 | Event Note ---
Date of Encounter: 01/14/17 Time of Encounter: 07:13 Called by Saman BOND. Frequent variables noted during NST. Viewed tracing on floor and noted indeterminate baseline with variables about every 2 minutes lasting for 30-60 seconds. Decision made to transfer to labor and delivery for continuous monitoring. Dr Genao updated and NST tracing from floor reviewed.
[2017-01-14] MEDS: Acyclovir 700 MG in D5% in Water 250 ML IVPB SCH ×3 (08:32→23:45)
[2017-01-14 09:16] LABS: Basophils % 0.1 %; Eosinophils # 0.1 K/mcL (0.0-0.6); Eosinophils % 1.4 %; Hematocrit 24.8 % (35.3-44.9); Hemoglobin 8.4 g/dL (11.5-15.4); Lymphocytes # 1.6 K/mcL (0.6-4.6); Lymphocytes % 19.5 %; Mean Corpuscular HGB Conc 33.9 g/dL (31.6-35.5); Mean Corpuscular Hemoglobin 31.5 pg (28.0-33.3); Mean Corpuscular Volume 92.9 fL (83.0-100.0); Mean Platelet Volume 10.2 fL (9.4-12.4); Monocytes # 0.4 K/mcL (0.0-1.3); Monocytes % 4.6 %; Neutrophils # 5.9 K/mcL (1.6-8.9); Platelet Count 149 K/mcL (140-400); Red Blood Count 2.67 M/mcL (3.82-4.97); Red Cell Distribution Width 12.7 % (11.5-14.5); Segmented Neutrophils % 73.4 %
[2017-01-14 09:33] LABS: BUN/Creatinine Ratio 6 (6-26); Calcium 7.7 mg/dL (8.6-10.8); Carbon Dioxide 25 mEq/L (19-29); Chloride 109 mEq/L (98-109); Glucose 103 mg/dL (70-99); Magnesium 1.2 mg/dL (1.6-2.6); Osmolality,Calculated 281 (280-300); Phosphorous 2.7 mg/dL (2.3-4.7); Potassium 3.4 mEq/L (3.5-4.5); Sodium 137 mEq/L (136-145); eGFR For African Americans > 60 (> 60); eGFR For Non-African Americans > 60 (> 60)
[2017-01-14 09:34] LABS: Blood Urea Nitrogen 3 mg/dL (7-20)
--- NOTE | 2017-01-14 09:43 | Internal Med Progress Note ---
Date of Encounter: 01/14/17 Time of Encounter: 08:45 - Assessment and plan (1) Meningitis Current Visit: Yes Status: Acute Assessment and plan: Infectious disease input appreciated patient clinically improving continue Acyclovir at this time VZV positive however this is unchanged from previous lab studies in August 2016 awaiting HSV serology continue IV fluids, closely monitor renal function given associated risks of kidney injury with Acyclovir afebrile for the last 24 hours will continue supportive care (bedrest, IV fluids, tylenol prn headache/fever) (2) Fever Current Visit: No Status: Resolved Assessment and plan: resolved at this time continue management as listed above Qualifiers: Fever type: unspecified Qualified Code(s): R50.9 - Fever, unspecified (3) Headache Current Visit: Yes Status: Acute Assessment and plan: Resolved at this time patient responded well to Fioricet and Reglan yesterday, if headache occurs, will resume Qualifiers: Headache type: unspecified Headache chronicity pattern: acute headache Intractability: not intractable Qualified Code(s): R51 - Headache (4) DVT prophylaxis Current Visit: Yes Status: Acute Assessment and plan: EPCD (5) 30 weeks gestation of Current Visit: Yes Status: Acute Assessment and plan: mail handler assistant on board and consultation appreciated (6) Electrolyte abnormality Current Visit: Yes Status: Acute Assessment and plan: Hypokalemia and hypomagnesemia K and Mg supplemented continue to monitor electrolytes and replace as needed - Subjective Interval history: Patient seen and examined in labor&delivery this morning. Patient was noted to have frequent variables on the NST earlier this morning due to which decision was made to transfer the patient to the L&D unit. Pt is resting in be bed and reports of feeling better compared to previous day. Denies any nausea or vomiting at this time and states her headache has improved from yesterday. As per mail handler assistant mannequin maker Letha Henning, if there is any acute change in the clinical status of the fetus, patient will be transferred to [facility]. At this time, patient is in no acute distress and HR has been within acceptable range. - Constitutional Vitals: Temp Pulse Resp BP Pulse Ox 97.5 F L 68 18 92/53 96 01/14/17 03:57 01/14/17 03:57 01/14/17 03:57 01/14/17 03:57 01/14/17 03:57 General appearance: Present: cooperative, A&O X 3, no acute distress, answers questions appropriately - Head Head exam: Present: atraumatic, normocephalic - Eye Eye exam: Present: conjuntiva pink, sclera anicteric - Respiratory Respiratory exam: Present: CTAB. Absent: respiratory distress, wheezes - Cardiovascular Cardiovascular exam: Present: RRR, +S1, +S2. Absent: diastolic murmur, gallop, rubs, systolic murmur - GI/Abdominal GI/Abdominal exam: Present: normal bowel sounds, soft, no peritoneal signs ( 30weeks ). Absent: tenderness - Extremities Exam Extremities exam: Present: warm, radial pulses palpable and symmetrical. Absent : calf tenderness - Neurological Exam Neurological exam: Present: alert, oriented X3 - Psychiatric Psychiatric exam: Present: normal affect, normal mood Internal Medicine: Result - Labs CBC & Chem 7: 01/14/17 09:05 01/14/17 09:05 Labs: Short CBC 01/14/17 Range/Units 09:05 WBC 8.1 (4.3-11.1) K/mcL Hgb 8.4 L (11.5-15.4) g/dL Hct 24.8 L (35.3-44.9) % Plt Count 149 (140-400) K/mcL Neutrophils # 5.9 (1.6-8.9) K/mcL BMP 01/14/17 09:05 Sodium 137 Potassium 3.4 L Chloride 109 Carbon Dioxide 25 BUN 3 L Creatinine 0.51 L Glucose 103 H Calcium 7.7 L Consult Discharge Plan - Plan Referrals: Jeanne Schneider AIRCRAFT LIFE SUPPORT FITTER [Primary Care Provider] -
[2017-01-14] MEDS ORDERED: Potassium Chloride 20 MEQ, Lidocaine 1% 2 ML in D5% in Water 250 ML IVPB ONE (09:44)
--- NOTE | 2017-01-14 10:31 | Event Note ---
Date of Encounter: 01/14/17 Time of Encounter: 10:29 I spoke to MFM, ok to give steroids, will keep her on continous monitoring, possible transfer to [facility] when stable, start Iron
[2017-01-14] MEDS ORDERED: Metoclopramide 10 MG/2 ML VIAL IVP PRN (10:45)
[2017-01-14] MEDS: Betamethasone Acet/SodPhos 6 MG/ML MDV IM SCH (11:20)
[2017-01-14] MEDS ORDERED: Ondansetron 4 MG/2 ML VIAL IVP ONE (13:12)
[2017-01-14] MEDS: Magnesium Sulfate 1 GM in D5% in Water 100 ML IVPB SCH ×3 (13:30→22:08)
[2017-01-14] MEDS: 0.9 % Sodium Chloride 1,000 ML IVC SCH (22:11)
[2017-01-14] MEDS: Iron Polysaccharide Complex 150 MG CAPSULE PO SCH (22:30)
[2017-01-15] MEDS: Metoclopramide 10 MG/10 ML UD.LIQ PO PRN ×3 (04:33→19:10)
[2017-01-15] MEDS: Acetaminophen/Butalbital/CaffeineTABLET PO PRN ×3 (04:51→16:38)
[2017-01-15 07:06] LABS: Basophils % 0.1 %; Eosinophils % 0.1 %; Hematocrit 25.8 % (35.3-44.9); Hemoglobin 8.9 g/dL (11.5-15.4); Immature Granulocytes % 0.9 % (0-4); Lymphocytes # 1.6 K/mcL (0.6-4.6); Lymphocytes % 13.8 %; Mean Corpuscular HGB Conc 34.5 g/dL (31.6-35.5); Mean Corpuscular Volume 92.8 fL (83.0-100.0); Mean Platelet Volume 10.1 fL (9.4-12.4); Monocytes # 0.4 K/mcL (0.0-1.3); Monocytes % 3.3 %; Neutrophils # 9.3 K/mcL (1.6-8.9); Platelet Count 168 K/mcL (140-400); Red Blood Count 2.78 M/mcL (3.82-4.97); Red Cell Distribution Width 12.6 % (11.5-14.5); Segmented Neutrophils % 81.8 %
[2017-01-15] MEDS: 0.9 % Sodium Chloride 1,000 ML IVC SCH ×2 (07:14→19:08)
[2017-01-15 07:18] LABS: BUN/Creatinine Ratio 6 (6-26); Calcium 8.2 mg/dL (8.6-10.8); Carbon Dioxide 20 mEq/L (19-29); Chloride 108 mEq/L (98-109); Glucose 103 mg/dL (70-99); Magnesium 1.6 mg/dL (1.6-2.6); Osmolality,Calculated 279 (280-300); Phosphorous 2.8 mg/dL (2.3-4.7); Potassium 3.4 mEq/L (3.5-4.5); Sodium 136 mEq/L (136-145); eGFR For African Americans > 60 (> 60); eGFR For Non-African Americans > 60 (> 60)
[2017-01-15 07:19] LABS: Blood Urea Nitrogen 3 mg/dL (7-20)
[2017-01-15] MEDS ORDERED: Potassium Chloride 20 MEQ, Lidocaine 1% 2 ML in D5% in Water 250 ML IVPB ONE (07:35)
[2017-01-15] MEDS: Acyclovir 700 MG in D5% in Water 250 ML IVPB SCH ×3 (07:57→23:49)
[2017-01-15] MEDS: Prenatal Vit/FA 1 EACH TABLET PO SCH ×2 (08:03→08:09)
--- NOTE | 2017-01-15 09:16 | Event Note ---
Date of Encounter: 01/15/17 Time of Encounter: 09:15 NST reviewed. 130s baseline, CAT 1
[2017-01-15] MEDS: Betamethasone Acet/SodPhos 6 MG/ML MDV IM SCH ×2 (10:54→11:12)
--- NOTE | 2017-01-15 12:05 | Internal Med Progress Note ---
Date of Encounter: 01/15/17 Time of Encounter: 11:45 - Assessment and plan (1) Meningitis Current Visit: Yes Status: Acute Assessment and plan: Infectious disease input appreciated patient clinically improving continue Acyclovir at this time VZV positive however this is unchanged from previous lab studies in August 2016 awaiting HSV serology continue IV fluids, closely monitor renal function given associated risks of kidney injury with Acyclovir afebrile for the last 48 hours will continue supportive care (bedrest, IV fluids, tylenol prn headache/fever) UA requested due to worsening leukocytosis, patient clinically asymptomatic at this time Awaiting ID follow up (2) Fever Current Visit: No Status: Resolved Assessment and plan: resolved at this time continue management as listed above Qualifiers: Fever type: unspecified Qualified Code(s): R50.9 - Fever, unspecified (3) Headache Current Visit: Yes Status: Acute Assessment and plan: Resolved at this time Qualifiers: Headache type: unspecified Headache chronicity pattern: acute headache Intractability: not intractable Qualified Code(s): R51 - Headache (4) DVT prophylaxis Current Visit: Yes Status: Acute Assessment and plan: EPCD (5) 30 weeks gestation of Current Visit: Yes Status: Acute Assessment and plan: can line examiner on board and consultation appreciated (6) Electrolyte abnormality Current Visit: Yes Status: Acute Assessment and plan: Hypokalemia K supplemented continue to monitor electrolytes and replace as needed - Subjective Interval history: Patient seen and examined at bedside. REsting comfortably in bed and reports of feeling significantly better compared to previous day. Remains afebrile however noted to have worsening leukocytosis. denies any fever, chills, dysuria. No overnight events reported. - Constitutional Vitals: Temp Pulse Resp BP Pulse Ox 97.9 F 90 16 96/58 100 01/15/17 11:42 01/15/17 11:42 01/15/17 11:42 01/15/17 11:42 01/15/17 03:45 General appearance: Present: cooperative, A&O X 3, no acute distress, answers questions appropriately - Head Head exam: Present: atraumatic, normocephalic - Eye Eye exam: Present: conjuntiva pink, sclera anicteric - Respiratory Respiratory exam: Present: CTAB. Absent: accessory muscle use, rales, rhonchi, wheezes - Cardiovascular Cardiovascular exam: Present: RRR, +S1, +S2. Absent: diastolic murmur, gallop, rubs, systolic murmur - GI/Abdominal GI/Abdominal exam: Present: normal bowel sounds, soft. Absent: tenderness (30 weeks gestation) - Extremities Exam Extremities exam: Present: warm, radial pulses palpable and symmetrical. Absent : calf tenderness, cyanotic, pedal edema - Neurological Exam Neurological exam: Present: alert, oriented X3 - Psychiatric Psychiatric exam: Present: normal affect, normal mood Internal Medicine: Result - Labs CBC & Chem 7: 01/15/17 07:01 01/15/17 07:01 Labs: Short CBC 01/15/17 Range/Units 07:01 WBC 11.4 H (4.3-11.1) K/mcL Hgb 8.9 L (11.5-15.4) g/dL Hct 25.8 L (35.3-44.9) % Plt Count 168 (140-400) K/mcL Neutrophils # 9.3 H (1.6-8.9) K/mcL BMP 01/15/17 07:01 Sodium 136 Potassium 3.4 L Chloride 108 Carbon Dioxide 20 BUN 3 L Creatinine 0.53 L Glucose 103 H Calcium 8.2 L - VTE Documentation of Mechanical Device: Intermittent pneumatic compression device Consult Discharge Plan - Plan Referrals: Jeanne Schneider CNP [Primary Care Provider] -
[2017-01-15 12:10] LABS: Bilirubin,Urine Negative (Negative); Blood,Urine Negative (Negative); Clarity,Urine Clear (Clear); Color,Urine Yellow (Yellow); Glucose,Urine (UA) Normal (Normal); Ketones,Urine Negative (Negative); Leukocyte Esterase,Urine Negative (Negative); Nitrite,Urine Negative (Negative); Protein,Urine Negative (Neg-Trace); Specific Gravity,Urine 1.007 (1.010-1.025); Urobilinogen,Urine Normal (Normal)
--- NOTE | 2017-01-15 12:55 | OB/GYN Progress Note ---
Date of Encounter: 01/15/17 Time of Encounter: 12:53 - Assessment and Plan (1) 30 weeks gestation of Current Visit: Yes Status: Acute Reassuring testing. Continue close observation Subjective - Subjective Principal diagnosis: 30 week IUP, viral meningitis Interval history: The patient is followed by medicine for a viral meningitis with unknown etiology. She has had an LP. She is currently symptomatic with a headache which she reports is improving. She has had some nausea and vomiting within the last 24 hours but this has been improving as well. She reports an active fetus. NSTs are every 4 hours. NSTs of been category 1 with baseline of 120s to 130s. Antepartum ROS: movement normal, no loss of fluid, no vaginal bleeding, no contractions Objective - Vital Signs Vital Signs: Vital Signs Temp Pulse Resp BP Pulse Ox 01/15/17 11:42 97.9 F 90 16 96/58 01/15/17 07:30 98.4 F 76 16 98/60 01/15/17 03:45 97.6 F 84 14 99/63 100 01/14/17 23:45 97.8 F 88 14 95/60 98 01/14/17 19:35 98.3 F 89 14 94/56 99 Intake and Output 01/14/17 01/15/17 01/15/17 23:59 07:59 15:59 Intake Total 1070 / 1334 1864 / 1864 / 33 Output Total 2400 / 2400 900 / 900 1500 / 1500 Balance -1330 / -1066 964 / 964 -1467 / -1467 Intake: IV Fluids 570 / 834 1264 / 1264 / 33 0.9 % Sodium Chloride 1, 1000 / 1000 000 ML @ 150 mls/hr IVC . Q6H40M EMILY Rx#:[id number] Zovirax 700 MG In 264 / 528 264 / 264 33 / 33 Dextrose 5% 250 ML @ 250 mls/hr IVPB Q8HR EMILY Rx#: [id number] Magnesium Sulfate 1 GM In 306 / 306 Dextrose 5% 100 ML @ 100 mls/hr IVPB Q4H EMILY Rx#: [id number] Oral 500 / 500 600 / 600 Output: Urine 2400 / 2400 900 / 900 1500 / 1500 Other: Meal Dinner Breakfast Percent of Meal Consumed 20% 10% Weight 94.801 kg Patient Weight 01/15/17 23:59 Weight 94.801 kg - Exam FHR: category 1 FHR comments: Baseline 130s Abdomen: Present: soft, gravid. Absent: tenderness - Labs Labs: Abnormal lab results WBC 11.4 K/mcL (4.3-11.1) H 01/15/17 07:01 RBC 2.78 M/mcL (3.82-4.97) L 01/15/17 07:01 Hgb 8.9 g/dL (11.5-15.4) L 01/15/17 07:01 Hct 25.8 % (35.3-44.9) L 01/15/17 07:01 Neutrophils # 9.3 K/mcL (1.6-8.9) H 01/15/17 07:01 Potassium 3.4 mEq/L (3.5-4.5) L 01/15/17 07:01 BUN 3 mg/dL (7-20) L 01/15/17 07:01 Creatinine 0.53 mg/dL (0.57-1.11) L 01/15/17 07:01 Glucose 103 mg/dL (70-99) H 01/15/17 07:01 Calculated Osmolality 279 (280-300) L 01/15/17 07:01 Calcium 8.2 mg/dL (8.6-10.8) L 01/15/17 07:01 Ur Specific [place] 1.007 (1.010-1.025) L 01/15/17 11:50 CSF Tot Nucleated Cells 71 TNC/mcL (0-5) H* 01/12/17 Unknown - Allied health notes Allied health notes reviewed: nursing
[2017-01-15] MEDS: Ondansetron ODT 4 MG TAB.RAPDIS SL PRN ×2 (13:11→20:26)
[2017-01-16] MEDS: Acetaminophen/Butalbital/CaffeineTABLET PO PRN ×3 (00:05→13:33)
[2017-01-16] MEDS: Metoclopramide 10 MG/10 ML UD.LIQ PO PRN ×2 (00:45→13:11)
[2017-01-16 05:08] LABS: Basophils % 0.1 %; Eosinophils % 0.4 %; Hematocrit 25.5 % (35.3-44.9); Hemoglobin 8.5 g/dL (11.5-15.4); Immature Granulocytes % 1.1 % (0-4); Lymphocytes # 2.1 K/mcL (0.6-4.6); Lymphocytes % 23.1 %; Mean Corpuscular HGB Conc 33.3 g/dL (31.6-35.5); Mean Corpuscular Hemoglobin 31.6 pg (28.0-33.3); Mean Corpuscular Volume 94.8 fL (83.0-100.0); Mean Platelet Volume 10.4 fL (9.4-12.4); Monocytes # 0.4 K/mcL (0.0-1.3); Monocytes % 4.7 %; Neutrophils # 6.4 K/mcL (1.6-8.9); Platelet Count 177 K/mcL (140-400); Red Blood Count 2.69 M/mcL (3.82-4.97); Red Cell Distribution Width 13.1 % (11.5-14.5); Segmented Neutrophils % 70.6 %
[2017-01-16 05:29] LABS: BUN/Creatinine Ratio 4 (6-26); Blood Urea Nitrogen 2 mg/dL (7-20); Calcium 8.3 mg/dL (8.6-10.8); Carbon Dioxide 24 mEq/L (19-29); Chloride 110 mEq/L (98-109); Glucose 93 mg/dL (70-99); Magnesium 1.5 mg/dL (1.6-2.6); Osmolality,Calculated 286 (280-300); Phosphorous 2.8 mg/dL (2.3-4.7); Potassium 3.2 mEq/L (3.5-4.5); Sodium 140 mEq/L (136-145); eGFR For African Americans > 60 (> 60); eGFR For Non-African Americans > 60 (> 60)
[2017-01-16] MEDS ORDERED: Magnesium Sulfate 1 GM in D5% in Water 100 ML IVPB ONE (07:28)
[2017-01-16] MEDS ORDERED: Potassium Chloride 40 MEQ, Lidocaine 1% 2 ML in D5% in Water 500 ML IVPB ONE (07:28)
[2017-01-16] MEDS ORDERED: 0.9 % Sodium Chloride 1,000 ML IVC SCH (07:29)
[2017-01-16 07:39] LABS: Parvovirus B19, IgG 5.61 IV (<=0.89); Parvovirus B19, IgM 0.11 IV (<=0.89)
[2017-01-16] MEDS: Ondansetron ODT 4 MG TAB.RAPDIS SL PRN ×2 (07:51→15:34)
[2017-01-16] MEDS: Acyclovir 700 MG in D5% in Water 250 ML IVPB SCH (07:51)
--- NOTE | 2017-01-16 08:06 | Infectious Disease Progress No ---
Date of Encounter: 01/16/17 Time of Encounter: 08:06 - Assessment and Plan (1) Meningitis Current Visit: Yes Status: Resolved Since admission she has met two SIRS criteria of fever with temperature max 101.9 F, tachycardia heart rate 95 Labs on admission revealed no leukocytosis, 61% neutrophils, hemoglobin 8.3, and glucose of 102. Patient had lumbar puncture performed in the emergency department on 01/12/17 which revealed 71 total nucleated cells with 85% lymphocytes, 52 glucose, and < 0.[address] brain without contrast revealed no acute intracranial abnormality. Blood cultures collected 01/12/17 reveal no growth to date. CSF cultures show no growth to date. CSF Gram stain shows <10 WBCs per high per Field, no bacteria Patient previously on empiric Vancomycin and Rocephin on 01/13/17. negative HSV, lyme, HIV, crypto, syhphilis A positive parvovirus IgG antibody and a negative IgM indicate maternal immunity ; thus, the fetus is protected from infection. Leukocytosis resolved. Recommendations: Likely viral meningitis given related total nucleated cells and 85% lymphocytes on CSF analysis. VZV IgG positive, unchanged since 09/22/16 Discontinue Acyclovir. Stable for discharge from ID standpoint likely aseptic meningitis, require symptomatic care, (bed rest, hydration and tylenol) index of suspicion for tick borne illness is low (2) Headache Current Visit: Yes Status: Chronic Resolved. Qualifiers: Headache type: unspecified Headache chronicity pattern: acute headache Intractability: not intractable Qualified Code(s): R51 - Headache (3) Fever Current Visit: Yes Status: Acute Resolved Qualifiers: Fever type: unspecified Qualified Code(s): R50.9 - Fever, unspecified (4) Current Visit: Yes Status: Chronic NETWORK SYSTEMS INTEGRATOR following Qualifiers: Weeks of gestation: 29 weeks Qualified Code(s): Z3A.29 - 29 weeks gestation of - Subjective Interval history: Patient seen and examined. No acute events overnight. Patient remains afebrile and denies chills, headache, neck stiffness, joint pain, chest pain, shortness of breath, rash, or weakness. Infect Dis PN-Objective Data - Labs CBC & Chem 7: 01/16/17 04:16 01/16/17 04:16 Labs: Laboratory Results - last 24 hr 01/15/17 01/16/17 01/16/17 11:50 04:16 04:16 WBC 9.1 RBC 2.69 L Hgb 8.5 L Hct 25.5 L MCV 94.8 MCH 31.6 MCHC 33.3 RDW 13.1 Plt Count 177 MPV 10.4 Immature Gran % 1.1 Seg Neutrophils % 70.6 Lymphocytes % 23.1 Monocytes % 4.7 Eosinophils % 0.4 Basophils % 0.1 Neutrophils # 6.4 Lymphocytes # 2.1 Monocytes # 0.4 Eosinophils # 0.0 Basophils # 0.0 Sodium 140 Potassium 3.2 L Chloride 110 H Carbon Dioxide 24 BUN 2 L Creatinine 0.56 L Est GFR ( Amer) > 60 Est GFR (Non-Af Amer) > 60 BUN/Creatinine Ratio 4 L Glucose 93 Calculated Osmolality 286 Calcium 8.3 L Phosphorus 2.8 Magnesium 1.5 L Urine Color Yellow Urine Clarity Clear Urine pH 7.0 Ur Specific Stephens 1.007 L Urine Protein Negative Urine Glucose (UA) Normal Urine Ketones Negative Urine Blood Negative Urine Nitrite Negative Urine Bilirubin Negative Urine Urobilinogen Normal Ur Leukocyte Esterase Negative Ur Culture Indicated? NO Cultures: Serology 01/15/17 Range/Units 11:50 Urine Color Yellow (Yellow) Urine Clarity Clear (Clear) Urine pH 7.0 (5.0-8.0) pH Units Ur Specific Stephens 1.007 L (1.010-1.025) Urine Protein Negative (Neg-Trace) mg/dL Urine Glucose (UA) Normal (Normal) mg/dL Urine Ketones Negative (Negative) mg/dL Urine Blood Negative (Negative) Urine Nitrite Negative (Negative) Urine Bilirubin Negative (Negative) Urine Urobilinogen Normal (Normal) mg/dL Ur Leukocyte Esterase Negative (Negative) Ur Culture Indicated? NO (NO) Exam - Constitutional Vitals: Temp Pulse Resp BP Pulse Ox 97.8 F 82 18 102/56 98 01/16/17 03:15 01/16/17 03:15 01/16/17 03:15 01/16/17 03:15 01/16/17 03:15 General appearance: cooperative, no acute distress, no febrile, no obese - Head Head exam: Present: atraumatic, normal inspection, normocephalic - Eye Eye exam: Present: PERRL, conjuntiva pink - ENT ENT exam: Present: mucous membranes moist, normal oropharynx - Neck Neck exam: Present: full ROM, normal inspection. Absent: meningismus - Respiratory Respiratory exam: Present: CTAB. Absent: rhonchi, wheezes - Cardiovascular Cardiovascular exam: Present: RRR, +S1, +S2 - GI/Abdominal GI/Abdominal exam: Present: normal bowel sounds. Absent: guarding, rebound, tenderness Additional comments: gravid - Extremities Exam Extremities exam: Present: full ROM, normal inspection - Neurological Exam Neurological exam: Present: alert, oriented X3. Absent: altered, motor sensory deficit - Psychiatric Psychiatric exam: Present: normal affect, normal mood - Skin Skin exam: Present: dry, warm. Absent: erythema, rash - VTE Documentation of Mechanical Device: Intermittent pneumatic compression device Consult Discharge Plan - Plan Instructions: Viral Meningitis (DC) Additional Instructions: Please follow up with your primary care physician and personal lines underwriter within five days after your discharge from the hospital. Please resume all your home medications after your discharge from the hospital. Please seek medical help if fever reoccurs. Referrals: Jeanne Schneider STUDENT CAREER DEVELOPMENT SPECIALIST [Primary Care Provider] - Prescriptions: Acetaminophen/Butalbital/Caffe [Fioricet] 1 each PO Q6HR PRN #40 tablet PRN Reason: Headache Metoclopramide [Reglan] 10 mg PO TID #30 tablet - Attending Attestation I examined this patient and my medical decision-making was reviewed with the Resident Physician. I agree with the documented findings, disposition and treatment plan as described except to the extent set forth below. aseptic meningitis, causative agent unknown, HSV PCR and VZV pcr added to csf tube (wrong test was ordered previously) arbopanel ordered (results pending) follow up with pcp for results september d/c home no antibiotics/antiviral required
--- NOTE | 2017-01-16 11:00 | OB/GYN Progress Note ---
Date of Encounter: 01/16/17 Time of Encounter: 10:58 - Assessment and Plan (1) 30 weeks gestation of Current Visit: Yes Status: Acute Continue q4h NST. Monitor movement Follow up in office for routine pre- care when discharged. POC per consult with Dr. Lawton. Subjective - Subjective Principal diagnosis: Meningitis Interval history: Patient states headache is improving. States positive movement. Denies epigastric pain, vaginal bleeding, vaginal discharge, cramping/ contractions. NST reactive q4 hours. Antepartum ROS: movement normal, no new complaints, no loss of fluid, no vaginal bleeding, no contractions Objective - Vital Signs Vital Signs: Vital Signs Temp Pulse Resp BP Pulse Ox 01/16/17 08:07 97.7 F 118 16 98/62 01/16/17 03:15 97.8 F 82 18 102/56 98 01/15/17 23:50 98.2 F 84 14 95/56 96 01/15/17 19:45 98.1 F 86 14 107/70 98 01/15/17 16:01 98.1 F 85 16 97/57 01/15/17 11:42 97.9 F 90 16 96/58 Intake and Output 01/15/17 01/16/17 01/16/17 23:59 07:59 15:59 Intake Total 2264 / 2264 264 / 264 1180 / 1180 Output Total 2850 / 2850 450 / 450 Balance -586 / -586 264 / 264 730 / 730 Intake: IV Fluids 1264 / 1264 264 / 264 0.9 % Sodium Chloride 1, 1000 / 1000 000 ML @ 150 mls/hr IVC . Q6H40M EMILY Rx#:[id number] Zovirax 700 MG In 264 / 264 264 / 264 Dextrose 5% 250 ML @ 250 mls/hr IVPB Q8HR EMILY Rx#: [id number] Oral 1000 / 1000 1180 / 1180 Output: Urine 2850 / 2850 450 / 450 Other: Meal Dinner Breakfast Percent of Meal Consumed 60% 100% - Exam FHR: category 1 - Labs Labs: Abnormal lab results RBC 2.69 M/mcL (3.82-4.97) L 01/16/17 04:16 Hgb 8.5 g/dL (11.5-15.4) L 01/16/17 04:16 Hct 25.5 % (35.3-44.9) L 01/16/17 04:16 Potassium 3.2 mEq/L (3.5-4.5) L 01/16/17 04:16 Chloride 110 mEq/L (98-109) H 01/16/17 04:16 BUN 2 mg/dL (7-20) L 01/16/17 04:16 Creatinine 0.56 mg/dL (0.57-1.11) L 01/16/17 04:16 BUN/Creatinine Ratio 4 (6-26) L 01/16/17 04:16 Calcium 8.3 mg/dL (8.6-10.8) L 01/16/17 04:16 Magnesium 1.5 mg/dL (1.6-2.6) L 01/16/17 04:16 Ur Specific [place] 1.007 (1.010-1.025) L 01/15/17 11:50 CSF Tot Nucleated Cells 71 TNC/mcL (0-5) H* 01/12/17 Unknown Parvovirus B19 IgG Ab 5.61 IV (<=0.89) H 01/13/17 04:01
[2017-01-16] MEDS: Iron Polysaccharide Complex 150 MG CAPSULE PO SCH (11:43)
[2017-01-16 13:00] LABS: HSV 1 Glycoprotein G IgG CSF 0.04 IV (<=0.89); HSV 2 Glycoprotein G IgG CSF 0.02 IV (<=0.89)
[2017-01-16] MEDS: Prenatal Vit/FA 1 EACH TABLET PO SCH (13:14)
[2017-01-16 13:36] VITALS: BP 98/61
--- NOTE | 2017-01-16 14:50 | Discharge Summary ---
Date of Encounter: 01/16/17 Time of Encounter: 14:48 - Discharge Diagnosis (1) Meningitis Priority: Primary Status: Resolved (2) Fever Priority: Primary Status: Resolved Qualifiers: Fever type: unspecified Qualified Code(s): R50.9 - Fever, unspecified (3) Headache Priority: Secondary Status: Chronic Qualifiers: Headache type: unspecified Headache chronicity pattern: acute headache Intractability: not intractable Qualified Code(s): R51 - Headache (4) DVT prophylaxis Priority: Secondary Status: Acute (5) 30 weeks gestation of Priority: Secondary Status: Chronic (6) Electrolyte abnormality Priority: Secondary Status: Acute - Discharge Medications Home Medications: Vit Calc,Iron,Folic [ Vitamins] 1 tab PO DAILY 01/12/17 [ History] Allergies/Adverse Reactions: 3 Allergy/AdvReac Type Severity Reaction Status Date / Time No Known Allergies Allergy Verified 01/12/17 13:22 Date of admission: 01/14/17 17:11 Primary care physician: Jeanne Schneider CNP Consults: Infectious disease: Dr. Call program facilitator Discharging clinician: Lidna Rose Anticipated date of discharge: 01/16/17 - Patient Status Disposition: Home, Self-Care Condition: Good Functional capacity at discharge: independent ambulation Overall status at discharge: patient is back to baseline - Discharge Instructions Follow Up With: Jeanne Schneider CNP [Primary Care Provider] - Additional Instructions: Please follow up with your primary care physician and associate embalmer/funeral director within five days after your discharge from the hospital. Please resume all your home medications after your discharge from the hospital. Please seek medical help if fever reoccurs. - Diet and Activity Activity: resume usual activities as tolerated Diet: advance to your usual diet Hospital course: Ms. Olivas is a 36 year old female who is 30weeks gestation presented to the ER with headache and fevers. She underwent LP in the ER and was started on empiric IV abx and antivirals. Pt was followed by Dr. Call (infectious disease) and her abx were discontinued as per the results of her CSF analysis. As per Dr. Call, she had a viral infection and given her current clinical status, she can be safely discharged without any continuation of antivirals. She is hemodynamically stable. She has been followed by associate embalmer/funeral director throughout the course of her admission. She will be discharged to home with follow up with her pcp and ob. Matty demonstrates understanding of her diagnosis and agrees with her discharge care and plan. - Time Spent with Patient Total time spent providing and/or coordinating discharge services: Less than 30 minutes - Constitutional Vitals: Temp Pulse Resp BP Pulse Ox 97.8 F 80 16 98/61 99 01/16/17 13:35 01/16/17 13:35 01/16/17 13:35 01/16/17 13:35 01/16/17 13:35 General appearance: Present: cooperative, A&O X 3, no acute distress, answers questions appropriately - Head Head exam: Present: atraumatic, normocephalic - Eye Eye exam: Present: conjuntiva pink, sclera anicteric - Respiratory Respiratory exam: Present: CTAB. Absent: respiratory distress, wheezes - Cardiovascular Cardiovascular exam: Present: RRR, +S1, +S2. Absent: diastolic murmur, gallop, rubs, systolic murmur - GI/Abdominal GI/Abdominal exam: Present: normal bowel sounds, soft, no peritoneal signs. Absent: distended, tenderness - Extremities Exam Extremities exam: Present: warm, radial pulses palpable and symmetrical. Absent : calf tenderness - Neurological Exam Neurological exam: Present: alert, oriented X3 - Psychiatric Psychiatric exam: Present: normal affect, normal mood - VTE Documentation of Mechanical Device: Intermittent pneumatic compression device
[2017-01-19 11:03] LABS: California Encephalitis IgG < 1:16 (< 1:16); California Encephalitis IgM < 1:16 (< 1:16); E.Equine Encephalitis IgG < 1:16 (< 1:16); E.Equine Encephalitis IgM < 1:16 (< 1:16); St. Louis Encephalitis IgG < 1:16 (< 1:16); St. Louis Encephalitis IgM < 1:16 (< 1:16); W.Equine Encephalitis IgG < 1:16 (< 1:16); W.Equine Encephalitis IgM < 1:16 (< 1:16)
== END 2017-01-16 16:45 | disposition home or self-care (01) | DRG 781 ==
LOC: 3ANU 16:59 → EMEROO 16:59 → 3ANU 23:37 → 1NENULAB 01-14 07:06 → 1NENUOBS 01-14 15:39
PROVIDERS: ADMIT Internal Medicine; ATTEND Internal Medicine

== ENCOUNTER → 2017-03-11 05:53 | Observation (INO) ==
--- NOTE | 2017-03-11 01:36 | OB/GYN History & Physical ---
Date of Encounter: 03/11/17 Time of Encounter: 21:00 Assessment and Plan (1) 38 weeks gestation of Current visit: Yes Status: Acute (2) Uterine contractions Current visit: Yes Status: Acute Cervix remains unchanged on serial cervical exams patient remains 5 cm Due to patient's distance from the hospital of over 1 hour patient prefers to rest hospital overnight to make sure she does not continue to labor - Therapeutic bed rest with benadryl. - No need for FHR monitoring. FHR baseline at 145. Patient has a Category I FHR tracing since admission - Will recheck between [id number] in the morning for cervical change and NST. If no change will discharge home. History of Present Illness Chief complaint: Labor eval HPI: Ms. Olivas is a 36 year old female at 38 wks presentation Presents for labor evaluation. She says that she has been having regular contractions since 5 pm that have been 8-9 minutes apart. She admits to good movement. Denies vaginal fluid leakage or bleeding. Denies headaches, vision changes, chest pain , nausea, vomiting, fever, dysuria, or diarrhea. course complicated by viral meningitis during this since resolved. Did receive steroids. Labs: A+, rubella and varicella immune, GBS negative, all other serologies negative Past Med Surg Social Fam HX - Past Medical History Medical history: no medical history Psychiatric history: no psych history - Past Surgical History Surgical History: other - Social History Smoking Status: Never smoker Smokeless Tobacco Status: No Alcohol use: none Drug use: none - Family History Mother Living Status: Still Living Hx Family Cardiac Disorders: No Hx Family Respiratory Disorders: No Hx Family Cancer: No Hx Family GI Disorders: No Hx Family Endocrine Disorder: Yes (Hypothyroidism) Hx Family Neuromuscular Disorders: No Hx Family Neurologic Disorders: No Hx Family HEENT Disorders: No Hx Family Autoimmune Disorders: No Obstetrical History - Pregnancies : 3 Para: 2 Term: 2 : 0 Ab's: 0 Livin Medications and Allergies Vit Calc,Iron,Folic [ Vitamins] 1 tab PO DAILY 01/12/17 [ History] 3 Allergy/AdvReac Type Severity Reaction Status Date / Time No Known Allergies Allergy Verified 01/12/17 13:22 Exam - Vital Signs Vital signs: BP: 138/81 Pulse: 100 FHR 145 - Constitutional Constitutional: well developed, well nourished, no acute distress, obese - HEENT HEENT: EOMI, PERRL, Mucus Membranes Moist - Neck Neck exam: full ROM, normal inspection - Lungs Respiratory exam: CTAB - Cardiovascular Cardiovascular exam: RRR, +S1, +S2 - Abdomen Abdomen: Present: bowel sounds normal, gravid, non tender - Extremities Extremities exam: full ROM, normal capillary refill, normal inspection, radial pulses palpable and symmetrical Deep Tendon Reflex Grade: 2+ Normal - Cervix Dilation: 5 (per CNM exam) Results All other labs normal. - VTE Reasons for not Prescribing Prophylaxis: Treatment not Indicated - Low risk for VTE
--- NOTE | 2017-03-11 05:39 | OB/GYN Progress Note ---
Date of Encounter: 03/11/17 Time of Encounter: 05:36 - Assessment and Plan (1) 38 weeks gestation of Current Visit: Yes Status: Acute (2) Uterine contractions Current Visit: Yes Status: Acute Cervical exam remains unchanged. Discharged to home with labor precautions. Pt verbalizes understanding and need to return immediately if any further signs of labor develop. Subjective - Subjective Interval history: Pt able to sleep during night, felt occasional contraction. Reports good movement, denies vaginal bleeding or leaking of fluid. Antepartum ROS: movement normal, contractions, no loss of fluid, no vaginal bleeding Objective - Vital Signs Vital Signs: Intake and Output 03/10/17 03/10/17 03/11/17 15:59 23:59 07:59 Other: Weight 97.3 kg - Exam FHR: category 1 FHR comments: 145/moderate/+accels/-decels Auscultation: bilateral: normal Abdomen: Present: soft, gravid Uterus: Present: normal Cervical dilation: 5/80/-2
== END | disposition home or self-care (01) ==
LOC: 1NENULAB
PROVIDERS: ADMIT Obstetrics & Gynecology; ATTEND Obstetrics & Gynecology